=== PATIENT | female | born 1980 | race Caucasian/White ===

== ENCOUNTER 2019-05-29 09:08 | Observation (INO) | payer OTHER ==
[~2019-05-29] VITALS: Ht 167.6 cm; Wt 125.9 kg
[2019-05-29] MEDS ORDERED: ONDANSETRON ODT 4 MG ONE (09:53)
[2019-05-29] MEDS ORDERED: ONDANSETRON ODT 4 MG PO ONE (10:00)
[2019-05-29] MEDS ORDERED: SODIUM CHLORIDE FLUSH 10ML SYR IVF ONE (10:00)
[2019-05-29] MEDS ORDERED: ONDANSETRON 2MG/ML, 2ML IVPush ONE (10:00)
[2019-05-29] MEDS ORDERED: ONDANSETRON 2MG/ML, 2ML ONE ×3 (10:09→13:33)
[2019-05-29] MEDS ORDERED: MORPHINE SULFATE 4 MG/ML, 1ML ONE ×2 (10:10→11:45)
[2019-05-29] MEDS: MORPHINE SULFATE 4 MG/ML, 1ML IVPush PRN ×2 (10:12→11:52)
[2019-05-29 10:13] LABS: BASOPHILS # (AUTO) 0.05 x10^3/uL (0-0.1); BASOPHILS % (AUTO) 0 % (0-1); EOSINOPHILS # (AUTO) 0.03 x10^3/uL (0-0.4); EOSINOPHILS % (AUTO) 0 % (1-7); LYMPHOCYTES % (AUTO) 10 % (22-44); MD NO; MEAN CORPUSCULAR HEMOGLOBIN 30.5 pg (27.0-34.8); MEAN CORPUSCULAR HGB CONC 33.4 g/dL (32.4-35.8); MEAN CORPUSCULAR VOLUME 91.1 fL (80-100); MEAN PLATELET VOLUME 7.4 fL (7.4-10.4); MONOCYTES # (AUTO) 0.49 x10^3/uL (0.2-0.8); MONOCYTES % (AUTO) 3 % (2-9); NEUTROPHILS # (AUTO) 12.36 x10^3/uL (1.8-6.8); NEUTROPHILS % (AUTO) 86 % (42-75); PLATELET COUNT 297 x10^3/uL (130-400); RED BLOOD COUNT 4.49 x10^6/uL (3.82-5.3); RED CELL DISTRIBUTION WIDTH 13.5 % (9.6-15.2)
[2019-05-29 10:23] LABS: ALBUMIN 3.3 g/dL (3.4-5.0); ANION GAP 7 mmol/L (5-15); CALCIUM 8.5 mg/dL (8.5-10.1); CHLORIDE 105 mmol/L (98-107)
--- NOTE | 2019-05-29 10:23 | NUR ---
PT NAUSEATED WHILE ATTEMPTING TO OBTAIN IV ACCESS. GIVEN ZOFRAN ODT. ONCE IV ESTABLISHED ADDITIONALLY MEDICATED NOTED ON JUL FOR RIGHT ABDOMINAL PAIN AND NAUSEA. WEBSPHERE PORTAL ARCHITECT AT BEDSIDE.
[2019-05-29 10:29] LABS: ALANINE AMINOTRANSFERASE 18 U/L (12-78); ALKALINE PHOSPHATASE 93 U/L (45-117); BILIRUBIN,TOTAL 1.6 mg/dL (0.2-1.0); CREATININE 0.98 mg/dL (0.55-1.02); TOTAL PROTEIN 7.7 g/dL (6.4-8.2)
[2019-05-29 10:45] LABS: MICROSCOPIC INDICATED
[2019-05-29 10:48] LABS: CULTURE INDICATED? YES
[2019-05-29] MEDS ORDERED: BIMA2.5D EACHEYE (11:14)
--- NOTE | 2019-05-29 11:15 | NUR ---
PAIN AND NAUSEA IMPROVED SINCE MEDICATED. RE-EVAL WITH DISCUSSION OF RESULTS AND POC
[2019-05-29 11:58] VITALS: BP 106/68
--- NOTE | 2019-05-29 11:59 | NUR ---
MEDICATED FOR RETURNING ABDOMINAL PAIN. PT STATES INITIAL DOSE BROUGHT PAIN FROM 7 TO 5 BUT PAIN BACK TO 7. SURGEON AT BEDSIDE EXAMINING PT
[2019-05-29] MEDS ORDERED: SODIUM CHLORIDE FLUSH 10ML SYR IVF PRN (12:00)
--- NOTE | 2019-05-29 12:27 | NUR ---
REPORT TO OR STAFF KIRILL.
[2019-05-29] MEDS ORDERED: BUPIVACAINE/PF 0.5% ONE (12:55)
[2019-05-29] MEDS ORDERED: EPINEPHRINE 1 MG/ML, 1ML ONE (12:55)
[2019-05-29] MEDS ORDERED: MIDAZOLAM 1 MG/ML, 2ML ONE ×2 (13:20→13:33)
[2019-05-29] MEDS ORDERED: FENTANYL PF 250 MCG/5ML ONE ×2 (13:20→13:33)
[2019-05-29] MEDS ORDERED: SUCCINYLCHOLINE 20 MG/ML, 10ML ONE ×2 (13:32→13:33)
[2019-05-29] MEDS ORDERED: ROCURONIUM 10MG/ML,5ML ONE (13:32)
[2019-05-29] MEDS ORDERED: PROPOFOL 10 MG/ML, 20ML ONE ×2 (13:32→13:33)
[2019-05-29] MEDS ORDERED: DEXAMETHASONE 4 MG/ML, 1ML ONE ×2 (13:32→13:33)
[2019-05-29] MEDS ORDERED: CEFOTETAN 2 GM ONE (13:33)
[2019-05-29] MEDS ORDERED: PHENYLEPHRINE 10 MG/ML ONE (13:33)
[2019-05-29] MEDS ORDERED: KETOROLAC 30 MG/1 ML ONE (13:33)
[2019-05-29] MEDS ORDERED: SUGAMMADEX 200 MG/2 ML IVPush ONE ×3 (13:33→14:15)
[2019-05-29] MEDS ORDERED: ROCURONIUM 10 MG/ML,10ML ONE (13:33)
[2019-05-29] MEDS ORDERED: ACETAMINOPHEN 325 MG TABLET PO PRN (14:00)
[2019-05-29] MEDS ORDERED: PROMETHAZINE 25 MG/ML, 1ML IV PRN (14:00)
[2019-05-29] MEDS ORDERED: hydrALAzine 20 MG/ML, 1ML IV PRN (14:00)
[2019-05-29] MEDS ORDERED: DIAZEPAM 5 MG/ML, 2ML IVPush PRN (14:00)
[2019-05-29] MEDS ORDERED: OXYcodone 5 MG/5 ML ORAL.SOL UDC PO PRN (14:00)
[2019-05-29] MEDS ORDERED: ONDANSETRON ODT 8 MG PO PRN (14:00)
[2019-05-29] MEDS ORDERED: PROMETHAZINE 12.5 MG SUPP PR PRN (14:00)
[2019-05-29] MEDS ORDERED: ONDANSETRON 2MG/ML, 2ML IV PRN (14:00)
[2019-05-29] MEDS ORDERED: HALOPERIDOL 5 MG/ML IV PRN (14:00)
[2019-05-29] MEDS ORDERED: LABETALOL 5MG/ML, 20ML IV PRN (14:00)
[2019-05-29] MEDS ORDERED: EPHEDRINE 50 MG/ML, 1ML IVPush PRN (14:00)
[2019-05-29] MEDS ORDERED: ALBUTEROL SULFATE 2.5 MG/3 ML NPPB PRN (14:00)
[2019-05-29] MEDS ORDERED: MEPERIDINE/PF 25MG/ML,1ML IVPush PRN (14:00)
[2019-05-29] MEDS ORDERED: HYDROmorphone 2 MG/ML, 1ML IVPush PRN (14:00)
[2019-05-29] MEDS ORDERED: MIDAZOLAM 1 MG/ML, 2ML IV PRN (14:00)
[2019-05-29] MEDS ORDERED: DIPHENHYDRAMINE 25 MG CAPSULE PO PRN (15:00)
[2019-05-29] MEDS ORDERED: ONDANSETRON 2MG/ML, 2ML IVPush PRN (15:00)
[2019-05-29] MEDS ORDERED: MORPHINE SULFATE 4 MG/ML, 1ML IVPush PRN (15:00)
[2019-05-29] MEDS ORDERED: OXYcodone/APAP 5/325MG TABLET PO PRN (15:00)
[2019-05-29] MEDS ORDERED: ACETAMINOPHEN 650 MG/20.3 ML UDC PO PRN (15:00)
[2019-05-29] MEDS ORDERED: KETOROLAC 30 MG/1 ML IV PRN (15:00)
[2019-05-29] MEDS ORDERED: DIPHENHYDRAMINE 50 MG/ML, 1ML IV PRN (15:00)
[2019-05-29] MEDS ORDERED: FENTANYL PF 100 MCG/2ML ONE (15:10)
[2019-05-29] MEDS: FENTANYL PF 100 MCG/2ML IV PRN ×2 (15:12→15:20)
[2019-05-29] MEDS ORDERED: ACETAMINOPHEN 650 MG/20.3 ML UDC ONE (15:17)
[2019-05-29] MEDS ORDERED: OXYcodone 5 MG/5 ML ORAL.SOL UDC ONE (15:17)
[2019-05-29] MEDS ORDERED: DIPHENHYDRAMINE 50 MG/ML, 1ML ONE (17:38)
[2019-05-29] MEDS ORDERED: POTASSIUM CHLORIDE 20 MEQ in D5%-0.45% NACL 1,000 ML IV SCH (18:00)
[2019-05-30] MEDS ORDERED: ENOXAPARIN 40 MG/0.4 ML SQ SCH (09:00)
== END 2019-05-29 18:40 | disposition home or self-care (01) ==
LOC: ED 10:48 → EDIP 12:08 → INTOOBSV 12:08 → EDIP 18:45
PROVIDERS: ADMIT Surgery; ATTEND Surgery
DX: K80.00 Calculus of gallbladder with acute cholecystitis without obstruction (principal); E66.9 Obesity, unspecified; K66.0 Peritoneal adhesions (postprocedural) (postinfection); Z68.41 Body mass index [BMI] 40.0-44.9, adult; Z79.899 Other long term (current) drug therapy
CPT/HCPCS: 36415; 47562; 76700; 80053; 81001; 83690; 84703; 85025; 87086; 88304; 96374; 96375; 96376; G0378; J0171; J0330; J1100; J1885; J2250; J2270; J2370; J2405; J2704; J3010; J3490; Q0162; S0020

== ENCOUNTER → 2019-10-22 | Outpatient (CLI) | payer OTHER ==
[~2019-10-22] MED LIST: BIMA2.5D EACHEYE
== END | disposition home or self-care (01) ==
LOC: CFH 10:59
PROVIDERS: ATTEND Obstetrics & Gynecology Gynecology
DX: Z12.31 Encounter for screening mammogram for malignant neoplasm of breast (principal)
CPT/HCPCS: 77067

== ENCOUNTER → 2019-11-19 | Outpatient (CLI) | payer OTHER | END | disposition home or self-care (01) | LOC: RAD 08:16 | PROVIDERS: ATTEND Surgery | DX: Z01.818 Encounter for other preprocedural examination (principal); E66.01 Morbid (severe) obesity due to excess calories; K44.9 Diaphragmatic hernia without obstruction or gangrene | CPT/HCPCS: 71046; 74246; 93005 ==